=== PATIENT | male | born 1950 | race Caucasian/White ===

== ENCOUNTER 2019-01-18 22:50 | Observation (INO) ==
--- NOTE | 2019-01-18 23:11 | Emergency Department Note ---
Disposition Clinical Impression: Methamphetamine abuse, Cocaine use, Elevated CPK, Acute kidney injury Abdominal pain Qualifiers: Abdominal location: lower abdomen, unspecified Qualified Code(s): R10.30 - Lower abdominal pain, unspecified Back pain Qualifiers: Back pain location: low back pain Chronicity: unspecified Back pain laterality: bilateral Sciatica presence: unspecified whether sciatica present Qualified Code(s): M54.5 - Low back pain Disposition: Admitted As Inpatient Condition: Fair Time of Disposition: 01:30 General Adult HPI - General Chief complaint: ED Abdominal Pain Stated complaint: FLANK PAIN Time Seen by Provider: 01/18/19 23:05 Source: patient Limitations: no limitations - History of Present Illness HPI Narrative: 68-year-old male past medical history of polysubstance abuse presenting as a bounce back to the hospital after being seen this morning. Patient was found to have acute kidney injury with rhabdomyolysis at that time was planned to be admitted to hospital medicine service for IV fluid hydration but did not admission stating that he had other things to do. Patient is now back to the ER stating that he wishes to be admitted for hydration at this time. Patient appears lethargic and has waxing and waning mental status, he has miotic pupils and appears to be intoxicated at this time. Patient is unable to take part significant history of present illness review of systems questioning. Onset (ago): unknown Location: back, buttocks Radiation: non-radiation Pain Severity: moderate Pain Scale: 7 Associated symptoms: Reports: denies other symptoms - Related Data Home Medications Medication Instructions Recorded Confirmed Unable To Obtain [Unable to Obtain] 01/19/19 01/19/19 Allergies Allergy/AdvReac Type Severity Reaction Status Date / Time No Known Allergies Allergy Verified 01/18/19 09:32 Limitations: ROS unobtainable due to patients medical condition Past Medical History - Past Medical History Medical history: Reports: non-contributory, cancer, hepatitis, other - Social History Smoking Status: Current every day smoker Smokeless Tobacco Status: No Alcohol use: Reports: occasionally Drug use: Reports: none Physical Exam Constitutional: Patient is lethargic, appears to be acutely intoxicated Neuro: GCS 15, no overt focal neurological deficits Head: Atraumatic, normocephalic Eyes: Pupils myotic, otherwise equal, round and reactive to light, no scleral icterus, no conjunctival injection Neck: Trachea midline without deviation. Anterior neck is supple without swelling. *Chest: Symmetric chest wall rise *Heart: Cardiac rhythm and rate are regular with S1 and S2 , no S3 or S4 appreciated, no murmurs, gallops, rubs, or clicks. *Lungs: Lungs are clear to auscultation bilaterally, without accessory muscle use or prolonged expiratory phase. No wheezes, rhonchi or stridor appreciated. Abdomen: Abdomen is flat, soft to palpation, normal bowel sounds. No abdominal bruit auscultated. Non-distended, non-rigid, no organomegaly, no ascites appreciated. No pulsatile mass, no tenderness or guarding to palpation in all four quadrants, no rebound Extremities: Normal capillary refill without evidence of pedal edema, joint swelling or erythema. Pulses/motor intact in all 4 extremities. Integumentary: warm, dry, intact, normal color. No rash, cyanosis, diaphoresis, erythema, or pallor - General Limitations: no limitations General appearance: alert, in no apparent distress Course Course Narrative: Labs and imaging performed earlier today are consistent with acute kidney injury with rhabdomyolysis with elevated CPK, mildly elevated liver enzymes. IV fluids will be initiated in the ED with admission to hospital medicine service for altered mental status in the setting of rhabdo and acute kidney injury. Vital Signs Temperature 97.9 F 01/18/19 22:54 Pulse Rate 76 01/18/19 22:54 Respiratory Rate 22 01/18/19 22:54 Blood Pressure 163/74 01/18/19 22:54 O2 Sat by Pulse Oximetry 76 01/18/19 22:54 Temperature 97.6 F 01/19/19 02:19 Pulse Rate 62 01/19/19 02:19 Respiratory Rate 14 01/19/19 02:19 Blood Pressure 133/81 01/19/19 02:19 O2 Sat by Pulse Oximetry 98 01/19/19 02:19 Oxygen Delivery Oxygen Delivery Room Air Medical Decision Making - EKG Data EKG #1 EKG attestation: Yes I reviewed and interpreted this EKG. EKG results narrative: Patient's EKG shows sinus rhythm with a heart rate of 70 bpm, NC interval 134 ms, QR confucianist 99 ms, QT/QTc interval 442/477 ms respectively. There are no significant ST segment elevations, depressions, pathologic Q waves, abnormal T- wave inversions, nor in other signs of acute ischemic change. This EKG performed today is generally consistent with previous EKG that was performed on 01/18/2019.
[2019-01-19] MEDS ORDERED: 0.9 % Sodium Chloride 1,000 ML IVC ONE (00:28)
[2019-01-19] MEDS ORDERED: *HR* OxyCODONE Immed Rel 5 MG TABLET PO PRN (01:35)
[2019-01-19] MEDS ORDERED: Acetaminophen 325 MG TABLET PO PRN (01:35)
[2019-01-19] MEDS ORDERED: traMADol 50 MG TABLET PO PRN (01:35)
[2019-01-19] MEDS ORDERED: Naloxone 0.4 MG/ML INJ IVP PRN (01:35)
--- NOTE | 2019-01-19 01:50 | Internal Med History&Physical ---
Date of Encounter: 01/19/19 Time of Encounter: 01:48 Internal Medicine - H&P: HPI Chief complaint: weakness Admitted From: Home Plans for Post Hospital Care: Home History of present illness: Rojelio Aviles is a 68 year old man with substance use disorder and throat cancer or which she reportedly receives care at an outside facility who presented to the emergency room earlier complaining diffuse body aches. Comprehensive studies were done and his urine was remarkable for amphetamine as well as cocaine. Lab work revealed a CK of 1300, elevated LFTs and creatinine of 1.45. CT studies were unremarkable. He was given some fluids and offered admission here or transfer to the [place] for ongoing care however he refused and said he had other things to do then subsequently eloped. It was noted that he had a MediPort in place prompting concern for utilizing this route as a means of illicit drug use. He came back this evening feeling lethargic, with a waxing and waning mental status and appeared to be intoxicated. He is admitted for further care. On my assessment he is notably somnolent and his chief complaint is body aches. Vitals: Reviewed General: Well-developed white man sleeping comfortably in bed. Skin: Warm and dry. HEENT: Moist mucous membranes. No conjunctivae pallor. Neck: No lymphadenopathy. No JVD. No carotid bruits. No palpable thyroid. Chest: Normal thoracic expansion. Normal breath sounds. Clear to auscultation. Heart: Normal S1 & S2; rhythmic. No rubs or murmurs. Abdomen: Non-distended, soft and non-tender to palpation. No peritoneal reaction. Extremities: No clubbing, cyanosis or edema. No calf tenderness. Normal distal pulses. Neurological: Somnolent but arousable to tactile stimuli. Psych: Affect appropriate. Assessment/Plan 1. Acute drug intoxication: Noted to have amphetamines and cocaine in urine. He seems to be in a rather sedated state however more concerning for opiates among other things perhaps synthetic that do not appear in UDS. Will monitor him clinically overnight. 2. Rhabdomyolysis: Mild in severity. Will place on IVF overnight and recheck in the morning. Monitor electrolytes. 3. Abnormal LFTs: Will check hepatitis viral serologies given his drug abuse history. 4. Hypokalemia: Mild. Will supplement. 5. Acute kidney injury: unclear if his current creatinine is his baseline so will recheck once fluid resuscitation is done. Past Med Surg Social Fam HX - Past Medical History Medical history: non-contributory, cancer, hepatitis, other Additional medical history: head & neck cancer, hepatitis C - Past Surgical History Additional surgical history: uvula/palate - Social History Smoking Status: Current every day smoker Smokeless Tobacco Status: No Alcohol use: occasionally Drug use: none Internal Medicine - H&P: Meds Unable To Obtain [Unable to Obtain] 01/19/19 [History] Allergy/AdvReac Type Severity Reaction Status Date / Time No Known Allergies Allergy Verified 01/18/19 09:32 All Systems PM: A 10-system review of systems was performed and is negative for pertinent fi ndings except as documented above in the HPI. Family history reviewed and found non-contributory. - Constitutional Vitals: Temp Pulse Resp BP Pulse Ox 97.9 F 65 16 143/73 99 01/18/19 22:54 01/19/19 01:31 01/19/19 01:31 01/19/19 01:31 01/19/19 01:31 Exam: . - Time Spent With Patient Total time spent is greater than 50% in coordination of care (as documented) at patient's floor/unit and/or counseling patient: Greater than 35 minutes
--- NOTE | 2019-01-19 01:52 | Emergency Department Note ---
Disposition Clinical Impression: Methamphetamine abuse, Cocaine use, Elevated CPK, Acute kidney injury Abdominal pain Qualifiers: Abdominal location: lower abdomen, unspecified Qualified Code(s): R10.30 - Lower abdominal pain, unspecified Back pain Qualifiers: Back pain location: low back pain Chronicity: unspecified Back pain laterality: bilateral Sciatica presence: unspecified whether sciatica present Qualified Code(s): M54.5 - Low back pain Disposition: Admitted As Inpatient Condition: Fair Time of Disposition: 01:30 General Adult HPI - General Chief complaint: ED Abdominal Pain Stated complaint: FLANK PAIN Time Seen by Provider: 01/18/19 23:05 Source: patient Limitations: no limitations Nursing Notes Reviewed: Yes Vital Signs Reviewed: Yes - History of Present Illness Location: back, buttocks Pain Scale: 7 Associated symptoms: Reports: denies other symptoms - Related Data Home Medications Medication Instructions Recorded Confirmed Unable To Obtain [Unable to Obtain] 01/19/19 01/19/19 Allergies Allergy/AdvReac Type Severity Reaction Status Date / Time No Known Allergies Allergy Verified 01/18/19 09:32 Past Medical History - Past Medical History Medical history: Reports: non-contributory, cancer, hepatitis, other - Social History Smoking Status: Current every day smoker Smokeless Tobacco Status: No Alcohol use: Reports: occasionally Drug use: Reports: none Physical Exam - General Limitations: no limitations General appearance: alert, in no apparent distress Course Vital Signs Temperature 97.9 F 01/18/19 22:54 Pulse Rate 76 01/18/19 22:54 Respiratory Rate 22 01/18/19 22:54 Blood Pressure 163/74 01/18/19 22:54 O2 Sat by Pulse Oximetry 76 01/18/19 22:54 Temperature 97.9 F 01/18/19 22:54 Pulse Rate 65 01/19/19 01:31 Respiratory Rate 16 01/19/19 01:31 Blood Pressure 143/73 01/19/19 01:31 O2 Sat by Pulse Oximetry 99 01/19/19 01:31 Oxygen Delivery Oxygen Delivery Room Air Medical Decision Making - EKG Data EKG #1 EKG attestation: Yes I reviewed and interpreted this EKG. EKG results narrative: EKG shows a normal sinus rhythm with ventricular rate of 70. No ST segment elevation or depression. No arrhythmia or ectopy. Attestation Statement - Attestation Attestation: I, Xavier Bradley MD, personally evaluated this patient and discussed their management with the resident physician. I reviewed the resident's note and agree with the documented findings, medical decision making, and plan of care. I reviewed the residents documentation and agree with the residents assessment and plan of care. I have personally had face to face time with the patient. I personally supervised and was present for the keller/critical portions of the following procedures completed by the resident: EKG interpretation. 68-year-old male presents to the emergency department by EMS with a complaint of lower back pain and lower abdominal pain. Patient was seen here earlier today and had a complete workup for the same complaints. Labs and imaging from the initial visit reviewed. Patient was found to have acute kidney injury as well as rhabdomyolysis on initial visit. He refused admission at that time or transfer to the [facility]. Patient eloped from the emergency department with his port accessed. He returns tonight complaining of lower back pain and lower abdominal pain. Patient appears altered. When he was here initially his tox screen was positive for amphetamine and cocaine. Records from the initial visit were reviewed. On examination patient is a well-developed well-nourished male in no acute distress. Patient sleeping soundly and had to be physically stimulated to arouse and when I went in to examine him. He did arouse with physical stimulation and opened his eyes and answered questions. He immediately started asking for pain medication. PERRLA. Mucous membranes are moist. Neck is supple. Breath sounds are clear and equal bilaterally. Heart regular rate and rhythm. Abdomen is soft with normal bowel sounds. Moderate diffuse tenderness over the mid and lower abdomen. No tympany or distention. EKG shows a normal sinus rhythm with ventricular rate of 70. No ST segment elevation or depression. No arrhythmia or ectopy. Labs and imaging from his initial visit earlier today were reviewed. The hospitalist, Dr. Blount, was consulted and accepted admission of the patient.
[2019-01-19] MEDS: 0.9 % Sodium Chloride 1,000 ML IVC SCH ×2 (02:28→05:01)
[2019-01-19 04:23] LABS: Albumin 3.6 g/dL (3.5-5.7); Albumin/Globulin Ratio 1.1 (1.1-2.2); BUN/Creatinine Ratio 23 (6-26); Bilirubin,Direct 0.3 mg/dL (0.0-0.2); Bilirubin,Indirect 0.8 mg/dL (0.0-1.2); Bilirubin,Total 1.1 mg/dL (0.3-1.0); Blood Urea Nitrogen 27 mg/dL (8-23); Calcium 8.5 mg/dL (8.6-10.3); Carbon Dioxide 28 mEq/L (23-29); Chloride 103 mEq/L (98-107); Creatine Kinase 983 Units/L (30-223); Globulin 3.2 g/dL (2.4-3.5); Glucose 110 mg/dL (70-105); Osmolality,Calculated 292 (280-300); Sodium 138 mEq/L (136-145); Total Protein 6.8 g/dL (6.4-8.9); eGFR For African Americans > 60 (> 60); eGFR For Non-African Americans > 60 (> 60)
[2019-01-19 04:45] LABS: Hepatitis B Surface Antigen Nonreactive (Nonreactive)
[2019-01-19] MEDS ORDERED: Potassium Chloride Elixir 20 MEQ/15 ML UDC PO ONE (04:55)
[2019-01-19 05:14] LABS: Hepatitis B Core IgM Nonreactive (Nonreactive)
[2019-01-19 05:16] LABS: Hepatitis A Antibody IgM Nonreactive (Nonreactive)
[2019-01-19] MEDS ORDERED: *HR* Heparin 5,000 UNIT/ML VIAL SQ SCH (06:00)
[2019-01-19 06:52] VITALS: BP 133/69
[2019-01-19 07:25] LABS: Hepatitis C Virus Antibody Reactive (Nonreactive)
[2019-01-19] MEDS ORDERED: 0.9 % Sodium Chloride 1,000 ML IVC SCH (08:55)
[2019-01-19 10:06] LABS: Amphetamine Screen,Urine Positive ng/mL (Cutoff=1000); Barbiturate Screen,Urine Negative ng/mL (Cutoff=200); Benzodiazepines Screen,Urine Negative ng/mL (Cutoff=200); Cannabinoid Screen,Urine Negative ng/mL (Cutoff = 50); Cocaine Screen,Urine Positive ng/mL (Cutoff= 300); Opiate Screen,Urine Negative ng/mL (Cutoff=300); Phencyclidine Screen,Urine Negative ng/mL (Cutoff=25)
--- NOTE | 2019-01-19 12:02 | Discharge Summary ---
- NOTES TO OUTPATIENT PROVIDER Notes to Outpatient Provider: f/u with PCP in one week. f/u with Jaylan Onc @ [facility] / [facility]. Drink plenty of fluids. Quit smoking tobacco and doing drugs. Date of Encounter: 01/19/19 Time of Encounter: 09:30 - Discharge Diagnosis (1) Rhabdomyolysis Priority: Primary Status: Acute Qualifiers: Encounter type: initial encounter Qualified Code(s): T79.6XXA - Traumatic ischemia of muscle, initial encounter (2) Tobacco dependence Priority: Secondary Status: Acute (3) Acute kidney injury Priority: Secondary Status: Acute (4) Back pain Priority: Secondary Status: Acute Qualifiers: Back pain location: low back pain Chronicity: unspecified Back pain laterality: bilateral Sciatica presence: unspecified whether sciatica present Qualified Code(s): M54.5 - Low back pain (5) Cocaine use Priority: Secondary Status: Acute (6) Methamphetamine abuse Priority: Secondary Status: Acute Hospital course: Mr. Aviles is a 68 year old male with known polysubstance abuse/dependence disorder and Head, neck, throat cancer follows with [facility] pt presented to ER yesterday morning to generalized diffuse body aches. He happened to have mild rhabdomyolysis and slightly elevated creatinine. In the ER patient got his chemo port access and eloped from the ER. He came back to ER last night again with intoxicated. He is admitted in the hospital placed him on cafeteria monitor. Also start him on aggressive IV hydration for his rhabdomyolysis. His creatinine improved. His CK total started trending down. So will discharge him home in a stable condition today. Patient refused to go for blood culture since we accessed his chemo port, however patient never exhibited any signs of sepsis. - Time Spent with Patient Total time spent providing and/or coordinating discharge services: - Discharge Medications Prescriptions: Continued Unable To Obtain [Unable to Obtain] 1 each .ROUTE AD each Home Medications: Dicyclomine [Bentyl] 10 mg PO BID PRN 01/19/19 [History] Docusate Sodium [Dok] 200 mg PO DAILY 01/19/19 [History] NALOXONE 4 MG Nasal Mobile [Narcan] 1 spray NS ONCE PRN 01/19/19 [History] Nicotine Patch [Nicoderm] 21 mg TD DAILY #30 patch.[id number] 01/19/19 [Rx] Omeprazole [PriLOSEC] 40 mg PO DAILY 01/19/19 [History] Phenylephrine HCl/[place] Butter [Preparation H Suppository] 1 supp RC BID PRN 01/19/19 [History] Tramadol HCl [Ultram] 50 mg PO QID 01/19/19 [History] Allergies/Adverse Reactions: Allergy/AdvReac Type Severity Reaction Status Date / Time Sulfa (Sulfonamide Allergy Swelling Verified 01/19/19 12:19 Antibiotics) of Lip/Tongue/Throat ketorolac [From Toradol] AdvReac See Verified 01/19/19 12:19 Comments Date of admission: 01/19/19 01:00 Primary care physician: PCP NONE - Constitutional Vitals: Temp Pulse Resp BP Pulse Ox 98.0 F 74 16 133/69 97 01/19/19 06:51 01/19/19 06:51 01/19/19 06:51 01/19/19 06:51 01/19/19 06:51 General appearance: Present: A&O X 3, no acute distress, answers questions appropriately Exam: Gen: Alert, awake, Oriented to time,place and person Chest: Diminished breath sounds B/L, No wheezing, No crackles, No rales Heart: S1S2+ RRR No murmurs Abd: Soft, NT, BS +, No organomegaly Ext: No edema, pulses are palpable, No calf tenderness Neuro : No acute focal neuro deficits noticed Skin: No rash. - Head Head exam: Present: atraumatic, normal inspection - Patient Status Disposition: Home, Self-Care Condition: Good Overall status at discharge: patient is back to baseline - Discharge Instructions [facility] Up With: [facility] [Non-Partnered Physician] - (Unable to make follow up appointment. Please call and schedule hospital follow up appointment for 7-10 days from date of discharge. ) - Diet and Activity Activity: increase activity as tolerated Diet: low salt diet
== END 2019-01-19 12:35 | disposition home or self-care (01) ==
LOC: 3BNU 22:50 → EMEROOARM 22:50 → SUATTDRO 01-19 01:00 → 3BNU 01-19 02:00
PROVIDERS: ADMIT Internal Medicine; ATTEND Family Medicine